=== PATIENT | female | born 1940 | race Caucasian/White ===

== ENCOUNTER 2016-12-11 17:20 | Emergency (ER) | payer MEDICARE, OTHER ==
[~2016-12-11] VITALS: Ht 157.5 cm; Wt 46.1 kg
[2016-12-11 17:32] VITALS: Ht 157.5 cm; Wt 46.1 kg
[2016-12-11] MEDS ORDERED: ACETAMINOPHEN 500 MG TAB PO STA (18:37)
--- NOTE | 2016-12-11 18:50 | ERD ---
ER Documentation Chief Complaint Date/Time DATE: 12/11/16 TIME: 18:40 Chief Complaint 8/10 r.side lower back pain radiating down hip pain 2 days (MARIE BARNES NP) HPI 76 year old female presents here in the emergency department for complaints of right lower back pain started 3 days ago, patient was stuck in traffic for an hour, reclined her seat for 1 hour, afterwards, started to have right lower back pain, described the pain as sharp pain, 6/10 scale, is worse upon movement. Patient is unable to completely stretch her lower back because of pain. Patient did not take any medications for pain. Patient also has a history of chronic back pain, history of vertebroplasty. She denies any incontinence. Patient denies any fever or chills. Patient denies any numbness or tingling. (MARIE BARNES NP) ROS All systems reviewed and are negative except as per history of present illness. (MARIE BARNES NP) Medications Home Meds Active Scripts Cyclobenzaprine Hcl* (Cyclobenzaprine Hcl*) 10 Mg Tablet, 10 MG PO TID, #15 TAB Prov:MARIE BARNES NP 12/11/16 Acetaminophen* (Tylophen*) 500 Mg Capsule, 1 CAP PO Q6H Y for PAIN AND OR ELEVATED TEMP, #20 CAP Prov:MARIE BARNES NP 12/11/16 Reported Medications [none] Unknown Strength No Conflict Check 12/11/16 Allergies Allergies: Coded Allergies: Sulfa (Sulfonamide Antibiotics) (Verified Allergy, Unknown, 12/11/16) codeine (Verified Allergy, Unknown, 12/11/16) diazepam (Verified Allergy, Unknown, 12/11/16) naproxen (Verified Allergy, Unknown, 12/11/16) PMhx/Soc Medical and Surgical Hx: pt denies Medical Hx, pt denies Surgical Hx (MARIE BARNES NP) FmHx Family History: No coronary disease, No diabetes, No other (MARIE BARNES NP) Physical Exam Vitals Vital Signs Date Time Temp Pulse Resp B/P Pulse Ox O2 Delivery O2 Flow Rate FiO2 12/11/16 17:32 98.1 96 20 133/80 95 (TEEHEE,VICTOR MANUEL N. MD) Physical Exam GENERAL: The patient is well developed and appropriate for usual state of health, in no apparent distress. CHEST: Clear to auscultation bilaterally. There are no rales, wheezes or rhonchi. HEART: Regular rate and rhythm. No murmurs, clicks, rubs or gallops. No S3 or S4. ABDOMEN: Soft, nontender and nondistended. Good bowel sounds. No rebound or guarding. No gross peritonitis. No gross organomegaly or masses. No Aly sign or McBurney point tenderness. BACK: No midline or flank tenderness. Tenderness on palpation and muscle spasms on the right lower back. EXTREMITIES: Equal pulses bilaterally. There is no peripheral clubbing, cyanosis or edema. No focal swelling or erythema. Full range of motion. Grossly neurovascularly intact. NEURO: Alert and oriented. Cranial nerves 2-12 intact. Motor strength in all 4 extremities with 5/5 strength. Sensation grossly intact. Normal speech and gait. SKIN: There is no apparent rash or petechia. The skin is warm and dry. HEMATOLOGIC AND LYMPHATIC: There is no evidence of excessive bruising or lymphedema. No gross cervical, axillary, or inguinal lymphadenopathy. (MARIE BARNES NP) Results 24 hrs Current Medications Medications (Trade) Dose Ordered Sig/Lonnie Route PRN Reason Start Time Stop Time Status Last Admin Dose Admin Acetaminophen (Tylenol Tab) 500 mg ONCE STAT PO 12/11/16 18:37 12/11/16 18:39 DC 12/11/16 19:18 Cyclobenzaprine HCl (Flexeril) 10 mg ONCE ONCE PO 12/11/16 19:00 12/11/16 19:01 DC 12/11/16 19:18 (VICTOR MANUEL MILLER MD) Results 24 hrs Current Medications Medications (Trade) Dose Ordered Sig/Lonnie Route PRN Reason Start Time Stop Time Status Last Admin Dose Admin Acetaminophen (Tylenol Tab) 500 mg ONCE STAT PO 12/11/16 18:37 12/11/16 18:39 DC 12/11/16 19:18 Cyclobenzaprine HCl (Flexeril) 10 mg ONCE ONCE PO 12/11/16 19:00 12/11/16 19:01 DC 12/11/16 19:18 Patient was given medication for pain here in emergency department, after treatment, patient verbalized feeling much better. Patient's pain is improved. Flexeril was also given to help with muscle spasms. PROCEDURE: CT Lumbar Spine without contrast. CLINICAL INDICATION: Back pain. TECHNIQUE: CT of the lumbar spine without contrast was performed. Axial images were obtained through the lumbar spine and reformatted at 2.5 mm slice thickness. Coronal and sagittal images were reformatted. The CTDIvol = 10.25 mGy and DLP = 271.86 mGy-cm. COMPARISON: None available FINDINGS: Vertebral bodies: Demineralization cannot exclude osteoporosis. An approximately 20 degrees dextroscoliosis with the apex at L3 is present. Increased density within the T12 compression fracture deformity is compatible with vertebral augmentation procedure, 3 mm of bone retropulsion of the superior T12 endplate is present. There is no evidence of acute fracture. Retrolisthesis of L1 relative to L2 and L2 relative to L3 is noted estimated at 3 mm for each level. Trace anterolisthesis at L4-5 is identified. Conus medularis region: Normal in intensity and location terminating at the L1 level. T12-L1: No discogenic abnormality of significance is seen. There is no facet arthropathy. The central canal is patent. There is no evidence for foraminal stenosis. L1-L2: Mild to moderate disk space narrowing with inferior L1 endplate Schmorl' s node and a trace retrolisthesis without disk protrusion. There is no facet arthropathy. The ligamentum flava are normal in thickness. The central canal is patent. There is no evidence for foraminal stenosis. L2-L3: Vacuum disk phenomenon with moderate to severe loss of disk stature, trace retrolisthesis and and osteophyte/disk complex asymmetric to the left. Degenerative subcortical cyst formation of the endplates asymmetric to the left are noted. There is no facet arthropathy. The ligamentum flava are normal in thickness. The central canal is patent. Osteophyte and disk material extends into the foramina causing moderate to severe left and moderate right foraminal stenosis. L3-L4: Calcification of the disk with mild loss of disk stature and annular disk bulging of 3 mm slightly asymmetric to the left. Mild bilateral facet arthropathy is noted slightly worse on the right. The ligamentum flava are normal in thickness. The central canal is patent. Disk bulging causes mild bilateral foraminal stenosis slightly greater on the left. L4-L5: Calcification of the disk with mild loss of disk stature and a broad- based approximately 6 mm disk protrusion. Severe bilateral facet arthropathy is present with an anterolisthesis, grade 1. approximately 5 mm of ligamentum flavum hypertrophy with calcification is present. The combination of findings cause moderate to severe central stenosis the AP dimension of the canal 6 mm. Disk material causes severe bilateral lateral recess stenosis. Disk material extends into the foramina causing moderate to severe left greater than right foraminal stenosis. L5-S1: Calcification of the disk space without significant loss of disk stature. Severe right and moderate left facet arthropathy is present. The ligamentum flava are normal in thickness. The central canal is patent. There is no evidence for foraminal stenosis. Sacrum and sacroiliac joints: Demineralization is noted without acute abnormality, moderate degenerative narrowing of the sacroiliac joints is present. None spine related findings: Multiple calcified gallstones consistent with cholelithiasis are noted. A simple cyst of the left kidney is approximately 5 cm. Severe atherosclerotic calcification of the abdominal aorta is seen. RPTAT:HJJR IMPRESSION: 1. 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 2. Degenerative disk disease at L2-3 and L3-4 asymmetric to the left causing left greater than right foraminal stenosis without significant central canal narrowing. 3. Chronic T12 compression deformity of approximately 50% with minimal bone retropulsion and findings of prior vertebral augmentation procedure. No evidence of acute fracture. 4. Demineralization with approximately 20 degrees dextroscoliosis. 5. Cholelithiasis. 6. Aortic atherosclerosis is present. Signed By: Kb Haney D.O 12/11/2016 9:07:57 PM (MARIE BARNES NP) Procedures/MDM Medical Decision Making: Patient's pain is most likely consistent with a back strain. There are chronic degenerative changes and chronic fracture noted in the lumbar spine which patient has had before, no acute fractures noted. No incontinence, low suspicion for cauda equina syndrome. There is no suspicion for neurovascular compromise. Patient has intact sensation and circulation of the affected extremity and distal extremities. No incontinence, no suspicion for cauda equina syndrome, no saddle anesthesia, no symptoms of any acute bacterial infection, no symptoms of any perirectal abscesses, pilonidal cyst.There is low suspicion for septic arthritis. Patient does not have any fever. No symptoms of any aortic dissection or aortic aneurysm. Disposition: Home. Patient is given prescription for Tylenol for mild to moderate pain,lexeril for muscle spasm. Patient was advised to avoid heavy lifting , apply warm compresses on affected area. Patient was advised that if symptoms are worse, numbness, tingling, high fever, unable to move joint, worsening symptoms, to return to emergency department immediately. Otherwise, patient is advised to follow up with the primary care doctor in 5-7 days for reevaluation of symptoms. (MARIE BARNES NP) MD NOTE- S- 76 F WITH WORSENING LOW BACK PAIN. PT HAS HISTORY OF MULTIPLE SURGERIES AND PROCEDURES. NO NEW TRAUMA. DENIES WEAKNESS, BOWEL BLASSER SYMPTOMS, FEVER, URINARY COMPLAINTS. AGREED WITH DETAILED HISTORY, ROS, EXAM OF MID LEVEL PROVIDER 0- GENERALIZED TENDERNESS LUMBAR AREA WITHOUT MIDLINE TENDERNESS, DEFORMITIES. NO WEAKNESS. NO DEFICITS APPRECIATED. NO ACUTE FINDINGS ON CT LIMBAR SPINE A- LOW BACK PAIN WITHOUT EVIDENCE BACTERIAL INFECTION, DEFICITS, FRACTURE, DISLOCATION. P- AGREE WITH STATED PLAN OF PAIN CONTROL, PRIMARY CARE FOLLOW UP, RETURN PRECAUTIONS. (VICTOR MANUEL MILLER MD) Departure Diagnosis: Primary Impression: Back pain Back pain location: low back pain Chronicity: acute Back pain laterality: right Sciatica presence: without sciatica Qualified Code: M54.5 - Acute right-sided low back pain without sciatica Additional Impression: Degenerative disc disease Spinal region: high cervical Qualified Code: M50.31 - Degeneration of intervertebral disc of high cervical region Condition: Stable Patient Instructions: Back Pain (Acute Or Chronic), Degenerative Disk Disease Additional Instructions: Patient is given prescription for Tylenol for mild to moderate pain,lexeril for muscle spasm. Patient was advised to avoid heavy lifting , apply warm compresses on affected area. Patient was advised that if symptoms are worse, numbness, tingling, high fever, unable to move joint, worsening symptoms, to return to emergency department immediately. Otherwise, patient is advised to follow up with the primary care doctor in 5-7 days for reevaluation of symptoms. MARIE BARNES NP Dec 11, 2016 18:50 VICTOR MANUEL MILLER MD Dec 12, 2016 10:44
[2016-12-11] MEDS ORDERED: CYCLOBENZAPRINE 10 MG TAB PO ONE (19:00)
--- NOTE | 2016-12-11 21:08 | RADRPT ---
PROCEDURE: CT Lumbar Spine without contrast. CLINICAL INDICATION: Back pain. TECHNIQUE: CT of the lumbar spine without contrast was performed. Axial images were obtained thro [facility] the lumbar spine and reformatted at 2.5 mm slice thickness. Coronal and sagittal images were ref ormatted. The CTDIvol = 10.25 mGy and DLP = 271.86 mGy-cm. COMPARISON: None available FINDINGS: Vertebral bodies: Demineralization cannot exclude osteoporosis. An approximately 20 degrees dextros coliosis with the apex at L3 is present. Increased density within the T12 compression fracture defo rmity is compatible with vertebral augmentation procedure, 3 mm of bone retropulsion of the superior T12 endplate is present. There is no evidence of acute fracture. Retrolisthesis of L1 relative to L2 and L2 relative to L3 is noted estimated at 3 mm for each level. Trace anterolisthesis at L4-5 is identified. Conus medularis region: Normal in intensity and location terminating at the L1 level. T12-L1: No discogenic abnormality of significance is seen. There is no facet arthropathy. The centr al canal is patent. There is no evidence for foraminal stenosis. L1-L2: Mild to moderate disk space narrowing with inferior L1 endplate Schmorl's node and a trace re trolisthesis without disk protrusion. There is no facet arthropathy. The ligamentum flava are normal in thickness. The central canal is patent. There is no evidence for foraminal stenosis. L2-L3: Vacuum disk phenomenon with moderate to severe loss of disk stature, trace retrolisthesis and and osteophyte/disk complex asymmetric to the left. Degenerative subcortical cyst formation of the endplates asymmetric to the left are noted. There is no facet arthropathy. The ligamentum flava are normal in thickness. The central canal is patent. Osteophyte and disk material extends into the f oramina causing moderate to severe left and moderate right foraminal stenosis. L3-L4: Calcification of the disk with mild loss of disk stature and annular disk bulging of 3 mm sli ghtly asymmetric to the left. Mild bilateral facet arthropathy is noted slightly worse on the right. The ligamentum flava are normal in thickness. The central canal is patent. Disk bulging causes mi ld bilateral foraminal stenosis slightly greater on the left. L4-L5: Calcification of the disk with mild loss of disk stature and a broad-based approximately 6 mm disk protrusion. Severe bilateral facet arthropathy is present with an anterolisthesis, grade 1. ap proximately 5 mm of ligamentum flavum hypertrophy with calcification is present. The combination of findings cause moderate to severe central stenosis the AP dimension of the canal 6 mm. Disk materi al causes severe bilateral lateral recess stenosis. Disk material extends into the foramina causing moderate to severe left greater than right foraminal stenosis. L5-S1: Calcification of the disk space without significant loss of disk stature. Severe right and mo derate left facet arthropathy is present. The ligamentum flava are normal in thickness. The central canal is patent. There is no evidence for foraminal stenosis. Sacrum and sacroiliac joints: Demineralization is noted without acute abnormality, moderate degenera tive narrowing of the sacroiliac joints is present. None spine related findings: Multiple calcified gallstones consistent with cholelithiasis are noted. A simple cyst of the left kidney is approximately 5 cm. Severe atherosclerotic calcification of t he abdominal aorta is seen. RPTAT:HJJR IMPRESSION: 1. 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 2. Degenerative disk disease at L2-3 and L3-4 asymmetric to the left causing left greater than righ t foraminal stenosis without significant central canal narrowing. 3. Chronic T12 compression deformity of approximately 50% with minimal bone retropulsion and findin gs of prior vertebral augmentation procedure. No evidence of acute fracture. 4. Demineralization with approximately 20 degrees dextroscoliosis. 5. Cholelithiasis. 6. Aortic atherosclerosis is present. Physician John Date Time Electronically viewed and signed by Physician John on 12/11/2016 21:07 JR/
[2016-12-11] MEDS ORDERED: ACET500C5 PO (21:17)
[2016-12-11] MEDS ORDERED: CYCL-319 PO (21:17)
== END 2016-12-11 21:26 | disposition home or self-care (01) ==
LOC: FTE 17:20
DX: M54.5 Low back pain (principal); M50.31 Other cervical disc degeneration, high cervical region
CPT/HCPCS: 72131